=== PATIENT | male | born 1970 | race Caucasian/White ===

== ENCOUNTER 2023-05-06 17:22 | Emergency (ER) | payer SELFPAY ==
[2023-05-06 17:56] VITALS: BP 132/89; PULSE 78; RESP 14; TEMP 37.2; O2SAT 97
[2023-05-06 18:14] VITALS: BP 136/77; PULSE 70; RESP 16; TEMP 37.1; O2SAT 96; BMI 27.3
--- NOTE | 2023-05-06 18:45 | HMH.EDDENT ---
Discharge Plan Disposition Patient Disposition: Home, Self-Care Prescriptions Prescriptions: New clindamycin HCl 150 mg capsule 150 mg PO TID 10 Days Qty: 30 0RF No Action silver sulfadiazine 50 GM bottle 1 applicatio TOPICAL BID Qty: 50 2RF Rx Instructions: Apply only to deep burn where shown Referrals Follow up/Referrals: Provider,Referral, [Primary Care Provider] - See instructions Clinical Impressions Clinical Impression: Gingival abscess Discharge ED Provider: Silvino Maurer Dental HPI General Chief complaint: Dental/Oral Stated complaint: left side mouth infl and pain Time Seen by Provider: 05/06/23 18:42 Mode of Arrival: Ambulatory Source of Information: Patient Limitations: No Limitations Description of Symptoms (Recalled from ER Triage Doc. by RN): pt reports L sided upper dental pain, pt reports broke his tooth 1 day ago. Swelling noted in pt cheek area. History of Present Illness HPI Narrative: 52-year-old white male presents with dental infection following eating a hamburger and his tooth breaking in the left maxillary region. The patient is allergic to penicillin which causes itching. He has no admission medications at this point. Related Data Previous Rx's Medication Instructions Recorded silver sulfadiazine 1 % topical 1 applicatio topical BID ##50 04/12/18 cream clindamycin HCl 150 mg capsule 150 mg PO TID 10 days #30 caps 05/06/23 Allergies Allergy/AdvReac Type Severity Reaction Status Date / Time codeine Allergy Mild Verified 11/30/17 11:18 [facility] Disclaimer: The information contained in this section may have been updated after the patient was seen, as this information can be updated by other users. Social History Smoking Status: Current every day smoker tobacco type: cigarettes packs per day: 1 alcohol intake: never current occupational status: previously employed Travel in the last 8 weeks: None ROS Obtained: Yes Systems reviewed as appropriate & no additional complaints except as documented Physical Exam General General appearance: alert and in no apparent distress Head Head exam: atraumatic and normocephalic Eye Eye exam: Present normal appearance and PERRL Expanded ENT Exam Open Mouth Image: 1. Erythema and swelling with a dental carry Chest Chest inspection: Present normal inspection Respiratory Respiratory exam: Present normal lung sounds bilaterally Cardiovascular Cardiovascular exam: Present regular rate and normal rhythm Abdominal Exam Abdominal exam: Present soft; Absent tenderness Neurological Exam Neurological exam: Present alert, oriented X3 and CN II-XII intact Medical Decision Making Medical Records MR Comment: 52-year-old white male presents with dental pain and swelling with some swelling of his left cheek as well. Patient does have dental caries with some red swollen tissue in the buccal area. He is allergic to penicillin and will receive 1 g of Rocephin and 60 mg of Toradol. We will follow-up with clindamycin 150 p.o. 3 times daily and he is to follow back up with the dentist. He reports he is already talked 1 but the infection must be clear before they will deal with the teeth. Noah Inquiry Pt receiving controlled substance: No Vital Signs: 05/06/23 17:56 05/06/23 18:14 Temperature 98.9 F 98.7 F Temperature Source Oral Pulse Rate 78 Pulse Rate [Right Radial] 70 Respiratory Rate 14 16 Blood Pressure 132/89 Blood Pressure [Right Arm] 136/77 Blood Pressure Mean [Right Arm] 96 Blood Pressure Source [Right Arm] Automatic Cuff Blood Pressure Position [Right Arm] Sitting 02 Sat by Pulse Oximetry 97 96 Oxygen Delivery Method Room Air Room Air Critical Care Time Critical Care Time Critical Care Time: No Attestation: On 05/06/23, the high probability of a clinically significant, sudden or life threatening deterioration of the following system(s) required my full and direct attentio
--- NOTE | 2023-05-06 19:07 | PC.NURSE ---
rounded on patient no needs at this time.
[2023-05-06 19:47] VITALS: BP 130/71; PULSE 72; RESP 16; TEMP 37.1
== END 2023-05-06 19:50 | disposition home or self-care (01) ==
PROVIDERS: Emergency Provider Emergency Medicine
DX: K05.219 Aggressive periodontitis, localized, unspecified severity (principal); R22.0 Localized swelling, mass and lump, head; F17.210 Nicotine dependence, cigarettes, uncomplicated
CPT/HCPCS: 96372; 99283; 99284; J0696

== ENCOUNTER 2024-03-31 10:01 | Emergency (ER) | payer SELFPAY ==
[2024-03-31 10:02] VITALS: BP 128/86; PULSE 73; RESP 16; TEMP 36.7; O2SAT 97; BMI 27.3
--- NOTE | 2024-03-31 10:03 | HMH.EDGENADL ---
Discharge Plan Disposition Patient Disposition: Home, Self-Care Condition: Good Prescriptions Prescriptions: New cephalexin 500 mg capsule 500 mg PO Q6H 10 Days Qty: 40 0RF sulfamethoxazole-trimethoprim 800-160 mg tablet 1 tab PO BID 10 Days Qty: 20 0RF No Action clindamycin HCl 150 mg capsule 150 mg PO TID 10 Days Qty: 30 0RF silver sulfadiazine 50 GM bottle 1 applicatio TOPICAL BID Qty: 50 2RF Rx Instructions: Apply only to deep burn where shown Referrals Follow up/Referrals: Adeline Knox MD [Referring] - See instructions Activity Restrictions/Add. Instructions Additional Instructions/Restrictions: Please take the antibiotics as directed, I placed a referral for dermatology, as we discussed, I recommend you follow-up with the animal science instructor to get this evaluated as it could represent something like skin cancer with an infection superimposed on it. Please return with any new or worsening symptoms. Clinical Impressions Clinical Impression: Cellulitis Qualifiers: Site of cellulitis: face Qualified Code(s): L03.211 - Cellulitis of face Instructions Patient Instructions: DI for Skin Abscess Discharge ED Provider: Kai Irby General Adult HPI General Chief complaint: Skin/Abscess/Foreign Body Stated complaint: spot above left eye Time Seen by Provider: 03/31/24 10:03 History of Present Illness HPI narrative: The patient presents with a chief complaint of a persistent facial lesion that began approximately three weeks ago, initially believed to be an ingrown hair. The condition has worsened despite his attempt to manage it by popping. The affected area itches constantly but does not impact vision or cause pain. Initially, it appeared as a small bump. The patient has been applying iodine and peroxide, which has led to some drainage, particularly during sleep. There are no similar issues elsewhere on the body, nor any known exposures that could have contributed to this condition. The patient reports that the lesion continues to drain, particularly in the mornings. Please note that above description of symptoms, in this electronic medical record under categorization of recalled from ER triage doctor by RN are reflective of an initial nursing assessment, however, is not reflective of my full history and physical exam that was personally taken and clarified. Consequentially, this preceding description of symptoms, which may include the patient's categorized chief complaint in the EMR, do not reflect my personal clinical impression, and the ultimate description of history of present illness and patient stated complaints should be deferred to this section of the note. Unless stated otherwise or congruent with this section of the note, additional signs, symptoms, or incongruence should be interpreted as inaccurate with my clinical impression. Related Data Previous Rx's Medication Instructions Recorded silver sulfadiazine 1 % topical 1 applicatio topical BID ##50 04/12/18 cream clindamycin HCl 150 mg capsule 150 mg PO TID 10 days #30 caps 05/06/23 cephalexin 500 mg capsule 500 mg PO Q6H 10 days #40 caps 03/31/24 sulfamethoxazole 800 1 tab PO BID 10 days #20 tabs 03/31/24 mg-trimethoprim 160 mg tablet Allergies Allergy/AdvReac Type Severity Reaction Status Date / Time codeine Allergy Mild Verified 11/30/17 11:18 [facility] Disclaimer: The information contained in this section may have been updated after the patient was seen, as this information can be updated by other users. Social History (Updated 05/06/23 @ 18:50 by Silvino Maurer MD) Smoking Status: Unknown if ever smoked alcohol intake: never current occupational status: previously employed Travel in the last 8 weeks: None ROS Obtained: Yes other As per HPI Physical Exam General General appearance: alert and in no apparent distress Head Head exam: atraumatic and normocephalic Eye Eye exam: Present normal appearance Neck Neck exam: Present normal inspection Chest Chest inspection: Present normal inspection and symmetric chest wall rise Respiratory Respiratory exam: Present normal lung sounds bilaterally; Absent respiratory distress Cardiovascular Cardiovascular exam: Present regular rate and normal rhythm Abdominal Exam Abdominal exam: Present soft Neurological Exam Neurological exam: Present alert and oriented X3 Psychiatric Psychiatric exam: Present normal affect and normal mood Skin Skin exam: Present warm and dry Other Other exam information: With central Nodular lesion on lateral margin of left eyebrow, nontender to palpation, no active drainage, no ulceration, no associated surrounding cellulitis appreciable lesion elsewhere Medical Decision Making Medical Records Medical records reviewed: Yes I reviewed the patient's medical records. Noah Inquiry Pt receiving controlled substance: No Vital Signs: 03/31/24 10:02 03/31/24 10:22 03/31/24 10:57 Temperature 98.1 F 98.4 F Temperature Source Oral Oral Pulse Rate 73 80 Pulse Rate [Radial] 73 Respiratory Rate 16 20 Blood Pressure 132/91 H 132/91 H Blood Pressure [Right Arm] 128/86 Blood Pressure Mean [Right Arm] 100 Blood Pressure Source Automatic Cuff Blood Pressure Source [Right Arm] Automatic Cuff Blood Pressure Position Sitting Blood Pressure Position [Right Arm] Sitting 02 Sat by Pulse Oximetry 97 96 Oxygen Delivery Method Room Air Room Air Medical Decision Narrative: Patient with history and exam per above presenting for evaluation of facial lesion Diagnoses considered include cellulitis Vitas, abscess, neoplasm, furuncle, carbuncle, among others. No clinical evidence of ocular involvement ED workup and treatment included: [id number] ultrasound revealing no central fluid collection, no surrounding cobblestoning The definitive diagnosis at this time is unclear to me, but based on patient's symptoms, it is likely that there is an infectious component to patient's underlying lesion, I explained to the patient that he should follow-up with dermatology as he may have cancerous lesion that his a superimposed infection. based off my findings on [id number] ultrasound, I believe the risks of any attempted incision and drainage outweigh the benefits, especially in light of reported spontaneous drainage and of this lesion, we will proceed to treat with course of antibiotics and the importance of outpatient follow-up was reiterated I discussed my clinical impression with patient and answered all questions. At this time, the evidence for any other entities in the differential is insufficient to warrant any further testing or ED observation. This was explained to the patient. The patient was advised that persistent or worsening symptoms require further evaluation. I confirmed the patient's understanding of this discussion. Critical Care Critical Care Time Critical Care Time: No
[2024-03-31 10:22] VITALS: BP 132/91; PULSE 73; O2SAT 96
[2024-03-31 10:57] VITALS: BP 132/91; PULSE 80; RESP 20; TEMP 36.9; O2SAT 97
== END 2024-03-31 11:02 | disposition home or self-care (01) ==
PROVIDERS: Emergency Provider Emergency Medicine
DX: L03.211 Cellulitis of face (principal)
CPT/HCPCS: 99283

== ENCOUNTER 2024-06-30 17:24 | Emergency (ER) | payer OTHER, SELFPAY ==
[2024-06-30 17:33] VITALS: BP 107/72; PULSE 78; RESP 16; TEMP 36.8; O2SAT 98; BMI 25.8
--- NOTE | 2024-06-30 17:51 | ED_ITS ---
Discharge Plan Disposition Patient Disposition: Home, Self-Care Condition: Good Prescriptions Prescriptions: No Action clindamycin HCl 150 mg capsule 150 mg PO TID 10 Days Qty: 30 0RF silver sulfadiazine 50 GM bottle 1 applicatio TOPICAL BID Qty: 50 2RF Rx Instructions: Apply only to deep burn where shown cephalexin 500 mg capsule 500 mg PO Q6H 10 Days Qty: 40 0RF sulfamethoxazole-trimethoprim 800-160 mg tablet 1 tab PO BID 10 Days Qty: 20 0RF Referrals Follow up/Referrals: Adeline Knox MD [Referring] - See instructions (L eyebrow lesion, growing, erosive center) Provider,MD Claritza [Primary Care Provider] - See instructions Colt Tate MD [Staff Physician] - See instructions (needs pcp and biopsy of face lesion) Activity Restrictions/Add. Instructions Additional Instructions/Restrictions: You were evaluated in the ER and are appropriate for discharge at this time. Follow-up with primary care and dermatology as soon as possible. Dermatology: Dr. Knox, Primary care: Dr. Tate, Keep the wound clean, dry, and covered. Return to the ER with new, worsening, or otherwise concerning symptoms Clinical Impressions Clinical Impression: Lesion of face Instructions Patient Instructions: DI for Laceration Repair Print Language Print Language: Tajik Discharge ED Provider: Casie Llamas Adult HPI General Chief complaint: Wound/Laceration Stated complaint: continued swelling/redness on face Time Seen by Provider: 06/30/24 17:35 Mode of Arrival: Ambulatory Source of Information: Patient Limitations: No Limitations Description of Symptoms (Recalled from ER Triage Doc. by RN): pt was seen here on 03/31 for an abcess to his L zoroastrianism at the end of his eyebrown. pt reports completing the two antibiotics he was given. pt states the area continues to get larger. pt has a golf ball sized diameter swolen open wound. pt denies pain. pt denies any other symptoms. History of Present Illness HPI narrative: 53-year-old male presents to the ER for concerns of wound on the left eyebrow. I agree with the research animal facility supervisor note above. Patient states it is not painful, it occasionally itches. He occasionally leaks a small amount of clear fluid onto his pillow. He states the lesion does not bother him but his brother forced him to come to the ER. I reviewed previous ER note which demonstrates patient was referred to dermatology. He states he has not followed up with them. The wound is increasing in size. He has no fevers. He reports the antibiotics he was on previously did not change it. Related Data Previous Rx's ?Medication ?Instructions ?Recorded silver sulfadiazine 1 % topical 1 applicatio topical BID ##50 04/12/18 cream clindamycin HCl 150 mg capsule 150 mg PO TID 10 days #30 caps 05/06/23 cephalexin 500 mg capsule 500 mg PO Q6H 10 days #40 caps 03/31/24 sulfamethoxazole 800 1 tab PO BID 10 days #20 tabs 03/31/24 mg-trimethoprim 160 mg tablet Allergies Allergy/AdvReac Type Severity Reaction Status Date / Time codeine AdvReac Mild Other Verified 06/30/24 17:41 [facility] Disclaimer: The information contained in this section may have been updated after the patient was seen, as this information can be updated by other users. Social History (Updated 05/06/23 @ 18:50 by Silvino Maurer MD) Smoking Status: Current every day smoker tobacco type: cigarettes packs per day: 1 alcohol intake: never current occupational status: previously employed Travel in the last 8 weeks: None ROS Obtained: Yes All systems reviewed & no additional complaints except as documented Positive ROS per HPI Physical Exam General General appearance: alert and in no apparent distress Head Head exam: atraumatic, normocephalic and other (Left preauricular adenopathy appreciated with 1 cm, nontender, mobile lymph nodes) Eye Eye exam: Present PERRL and EOMI; Absent conjunctival redness, jaundice or nyst agmus ENT ENT exam: Present mucous membranes moist Neck Neck exam: Present normal inspection and full ROM Chest Chest inspection: Present symmetric chest wall rise Respiratory Respiratory exam: Absent respiratory distress or stridor Cardiovascular Cardiovascular exam: Present regular rate and normal rhythm Extremities Exam Extremities exam: Present full ROM Neurological Exam Neurological exam: Present alert and oriented X3; Absent motor sensory deficit Psychiatric Psychiatric exam: Present normal affect and normal mood Skin Skin exam: Present warm, dry and other (2.5 cm diameter raised lesion at the lateral aspect of the left eyebrow. Erosive center that is scabbed. No purulence, no fluctuance, no tenderness, no surrounding induration. Mass feels thick, rubbery, is not fixed to underlying structures) Medical Decision Making Medical Records Medical records reviewed: Yes I reviewed the patient's medical records. MR Comment: See HPI Noah Inquiry Pt receiving controlled substance: No Vital Signs: 06/30/24 17:33 Temperature 98.3 F Temperature Source Oral Pulse Rate [Left] 78 Respiratory Rate 16 Blood Pressure [Right Arm] 107/72 L Blood Pressure Mean [Right Arm] 83 Blood Pressure Source [Right Arm] Automatic Cuff Blood Pressure Position [Right Arm] Sitting 02 Sat by Pulse Oximetry 98 Oxygen Delivery Method Room Air Medical Decision Narrative: 53-year-old male presents to the ER for complaints of left eyebrow lesion. On initial evaluation patient is hemodynamically stable, afebrile, he has large left eyebrow lesion with erosive component in the center, no fluctuance or induration, no pain, no redness. No effect on the eye. Full range of motion of left eyelid. Small left preauricular adenopathy. Remainder of exam is benign. I do not believe patient requires labs or imaging at this time. There are no findings of infection though I did consider cellulitis and abscess, the exam is not consistent with this. He also reports that previous antibiotics have left the wound unchanged. I have highest concern for a cancerous lesion. I spent significant time at bedside counseling and educating the patient and his brother on the importance of following up with both primary care and dermatology for biopsy and evaluation. Patient was again referred to dermatology and primary care as well as given these phone numbers directly to call them for appointment as soon as possible. Patient was given instructions on symptomatic management, follow up instructions, and return precautions for the emergency department. Patient indicated understanding and was discharged in stable condition. Critical Care Critical Care Time Critical Care Time: No
[2024-06-30 18:00] VITALS: BP 108/75; PULSE 78; RESP 18; TEMP 36.8; O2SAT 98
== END 2024-06-30 18:09 | disposition home or self-care (01) ==
PROVIDERS: Emergency Provider Emergency Medicine
DX: L98.9 Disorder of the skin and subcutaneous tissue, unspecified (principal)
CPT/HCPCS: 99282

== ENCOUNTER 2025-09-28 08:00 | Outpatient (RCR) | payer OTHER, SELFPAY | END 2025-09-28 23:59 | disposition home or self-care (01) | LOC: OT 08:00 | PROVIDERS: Visit Provider Nurse Practitioner Family | DX: M25.511 Pain in right shoulder (principal); M25.512 Pain in left shoulder | CPT/HCPCS: 97110; 97140; 97165; 97530 ==